=== PATIENT | male | born 1970 | race Two or more races ===

== ENCOUNTER 2025-05-09 15:46 | Emergency (ER) | payer MEDICAID, SELFPAY ==
[2025-05-09 15:46] VITALS: BMI 26.1
--- NOTE | 2025-05-09 15:55 | XR_ITS ---
Examination: Left elbow 3 views Technique: Elbow AP, oblique, lateral 3 views Exam date and time: May 09, 2025, 1558 hours INDICATIONS: Redness swelling involving the elbow this week FINDINGS: No fracture or dislocation. No elbow effusion. No cortical bone destruction. Large posterior bony olecranon spur Soft tissue swelling dorsum of the elbow IMPRESSION: Soft tissue swelling dorsum of the elbow, consider ultrasound soft tissue follow-up
[2025-05-09 15:58] VITALS: BP 146/93; PULSE 96; RESP 18; TEMP 36.8; O2SAT 99
--- NOTE | 2025-05-09 17:19 | EDNOTE_ITS ---
<Statement entered by Elizabeth Dobson MD - 05/10/25 11:58> As co-signing physician, I was present and available for consult prn. I concur with the plan and care as documented by the midlevel provider. 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 Denies any numbness, tingling, weakness and it only hurts when he applies pressure to it. Related Data Home Medications ?Medication ?Instructions ?Recorded ?Confirmed lisinopril 20 mg tablet 20 mg PO QDAY 05/04/1805/04 Previous Rx's ?Medication ?Instructions ?Recorded albuterol sulfate 90 mcg/actuation 2 puff inhalation Q 4H #8.5 grams 05/04/18 aerosol inhaler sulfamethoxazole 800 1 tab PO BID 10 days #20 tab s 05/09/25 mg-trimethoprim 160 mg tablet (Bactrim DS) Allergies Allergy/AdvReac Type Severity Reaction Status Date / Time No Known Allergies Allergy Verified 05/09/25 15:49 ED Exam Narrative Physical exam: Constitutional: Vital Signs Reviewed. Well appearing. No acute distress. Not toxic appearing. Head: Normocephalic, atraumatic. Eyes: Conjunctiva clear. ENT: Mucous membranes moist. Neck: Trachea midline. Normal range of motion. No nuchal rigidity. Respiratory: Normal effort. No respiratory distress or accessory muscle use. Neuro: Alert and oriented. Speech normal. No focal gross motor or sensory deficits observed. Skin: Warm, dry, normal color. Psych: Pleasant. Normal affect. Cooperative. Left upper extremity: Positive tenderness to palpation, erythema, warmth noted to the olecranon bursa and there is a abrasion noted overlying that aspect as well which appears to be well-healing.There is no fluctuance or drainage. Full range of motion, strength 5 out of 5, sensation tact light touch for left elbow. No effusion of left elbow. No pain with loading left elbow joint. Radial pulse 2+ regular rate and rhythm. Course Quality Measures none Orders Category Date Time Status XR elbow comp LT min 3V Stat Exams 05/09/25 15:55 Completed cefTRIAXone [Rocephin] 1,000 mg Med 05/09/25 16:33 Discontinued Lidocaine 1% Pf Vial 5ml [Xylocaine 1% Pf 5 ml] 2.1 ml IM X1 Vital Signs Vital signs: Vital Signs Temperature 98.3 F 05/09/25 15:58 Pulse Rate 96 05/09/25 15:58 Respiratory Rate 18 05/09/25 15:58 Blood Pressure 146/93 H 05/09/25 15:58 Pulse Oximetry (%) 99 05/09/25 15:58 Oxygen Delivery Method Room Air 05/09/25 15:58 Extremity Injury MDM Narrative MDM Narrative:: MDM This patient?s soft tissue infection appears appropriate for outpatient management with close follow-up by a clinician within 24?48 hours. There are no signs of systemic toxicity, and a serious, rapidly progressive infection is unlikely based on presentation and exam. Concern for cellulitis versus septic bursitis versus traumatic bursitis. No irritable joint, circumferential erythema, effusion or pain with loading joint and doubt septic arthritis. Doubt necrotizing fasciitis given lack of tenderness beyond erythema or crepitus, and doubt lymphangitis given lack of streaking. No focal fluid collection is appreciated to suggest need for incision and drainage. Antibiotics have been initiated, and response will be assessed at follow-up. The patient has been inst ructed on signs of acute progression and to return immediately if symptoms worsen or change. At the time of reassessment prior to discharge, the patient remains alert and oriented ?3 with GCS 15. Vitals are normal, pain is controlled, and the patient is tolerating oral intake without nausea or vomiting. The patient is agreeable to discharge and verbalizes understanding of the diagnosis, studies, treatment plan, medications (including side effects/precautions), and strict ER return precautions as discussed in the ED. All concerns were addressed, and the patient is comfortable with the plan. Patient data External records reviewed:: None Clinical information provided by:: patient Social determinants that could affect healthcare access:: none Patient has the following chronic illnesses:: As noted How is presenting disease/condition affected by chronic disease/condition?: exacerbated by Evaluation data The following diagnostics were reviewed and interpreted by me:: lab results and radiology exam(s) Lab and/or radiology exams considered but not ordered:: Additional Labs and radiology considered, but not ordered as they were not clinically indicated at this time. Interpretation Summary: POC glucose minimally elevated at 123 X-ray without gross fracture or bony mal-alignment or effusion however there is soft tissue swelling overlying the olecranon bursa and a an osteophyte which is noted over the olecranon process which appears chronic and well-corticated in na ture Medications / Prescriptions Medications or Prescriptions considered but not ordered:: I ordered medications based on the patient?s clinical needs and assessment, as documented in the chart. For medications not prescribed, they were not indicated for the patient's current condition, and I determined they were unnecessary at this time to avoid potential risks or complications. Medication administrations:: Medication Administration History Discontinued Medications Ceftriaxone Sodium 1,000 mg/ (Lidocaine HCl 2.1 ml) 0 mg IM X1 ONE Stop: 05/09/25 16:34 Last Admin: 05/09/25 17:34 Dose: 1,000 mg Documented By: GM As noted Consultations Consultation(s) initiated? (list below): No Diagnosis Upper Extremity Injury Differential Diagnosis: other Most likely diagnosis given after review of the tests above:: As noted Admission Indicated Admission indicated?: not indicated Admission Request Was there a request for admission?: No Disposition Plan Disposition Plan: Discharge Discharge Attestation Discharge Attestation: The patient and all family members were given an opportunity to ask questions and understood the discharge instructions. Discharge instructions specifically effects, indications for sooner follow up or return to the emergency department, and the expected course of current diagnosis. Patient condition: Stable Discharge Plan Plan Patient Disposition: HOME (Self Care) Patient condition on transfer: Stable Prescriptions/Referrals Prescriptions/Med Rec: New sulfamethoxazole-trimethoprim [Bactrim DS] 800-160 mg tablet 1 tab PO BID 10 Days Qty: 20 0RF No Action lisinopril 20 mg Tablet 20 mg PO QDAY albuterol sulfate 90 mcg/actuation HFA aerosol inhaler 2 puff INH Q4H Qty: 8.5 0RF Referrals: Carlos Thornton MD [Primary Care Provider, Family Practice] - In 1 week Problem List Clinical Impression: Septic bursitis of elbow Patient/Caregiver Discharge Instructions Education Materials: ED Bursitis, ED Cellulitis Additional Instructions: Follow up with your primary medical doctor within 48 hours. Return to the Emergency Room immediately for any new, worsening, continuing symptoms or any concerns at all. Return to the Emergency Room within 48 hours if you are unable to follow up with your primary medical doctor within 48 hours. Print Language: Kyrgyz Stand Alone Forms: Breanna Award Info., Patient Portal Info Letter PA/FLAT FOLDING MACHINE OPERATOR Supervising Physician PA/FLAT FOLDING MACHINE OPERATOR Supervising Physician: Dr. DOBSON
== END 2025-05-09 17:39 | disposition home or self-care (01) ==
PROVIDERS: Emergency Provider Emergency Medicine; PCP Family Medicine
DX: M71.122 Other infective bursitis, left elbow (principal)
CPT/HCPCS: 73080; 82947; 96372; 99283; J0696; J3490

== ENCOUNTER 2025-05-11 20:01 | Inpatient (IN) | payer MEDICAID, SELFPAY ==
[2025-05-11 20:03] VITALS: BMI 27.7
[2025-05-11 20:10] VITALS: BP 124/85; PULSE 91; RESP 18; TEMP 36.6; O2SAT 97
--- NOTE | 2025-05-11 20:24 | XR_ITS ---
EXAMINATION: Left elbow 2 views TECHNIQUE: AP lateral left elbow 2 views Date and time: May 11, 2025, 2040 hours INDICATIONS: Redness swelling and pain involving the elbow this week. FINDINGS: No fracture or dislocation. 15 mm posterior bony olecranon spur Soft tissue swelling dorsum to the elbow No elbow effusion IMPRESSION: No fracture or cortical bone destruction Recommend ultrasound soft tissue follow-up with specific attention to the soft tissue dorsal to the elbow
--- NOTE | 2025-05-11 20:33 | PD.EDRECHK ---
ED Recheck Abnl Lab Rx-RME/HPI General Chief Complaint: Recheck/Abnormal Lab/Rx Stated Complaint: RE CHECK LEFT ELBOW SWELLING Time Seen by Provider: 05/11/25 20:05 Arrival date/time: 05/11/25 20:01 RME / HPI RME / HPI narrative: 55-year-old male with past medical history of hypertension, diabetes on metformin who presents to the ER for recheck of left elbow septic bursitis which she was diagnosed with 3 days ago given a shot of ceftriaxone here in the ER and discharged with Bactrim which she has been taking for just over 48 hours however his pain and redness have worsened. Denies any fever, nausea, vomiting. Related Data Home Medications ?Medication ?Instructions ?Recorded ?Confirmed lisinopril 20 mg tablet 20 mg PO QDAY 05/04/18 05/04/18 Previous Rx's ?Medication ?Instructions ?Recorded albuterol sulfate 90 mcg/actuation 2 puff inhalation Q4H #8.5 grams 05/04/18 aerosol inhaler sulfamethoxazole 800 1 tab PO BID 10 days #20 tabs 05/09/25 mg-trimethoprim 160 mg tablet (Bactrim DS) Allergies Allergy/AdvReac Type Severity Reaction Status Date / Time No Known Allergies Allergy Verified 05/11/25 20:02 ED Exam Narrative Physical exam: Constitutional: Patient alert and oriented. Well appearing. No acute distress. Not toxic appearing. Head: Normocephalic, atraumatic. Eyes: Periorbital regions bilaterally normal to inspection. Conjunctiva clear bilaterally. Sclera anicteric bilaterally. Pupils equal, round, reactive to light bilaterally. Extraocular movements intact bilaterally. Mouth/Throat: Mucous membranes moist. No stridor or muffled voice. No trismus. Handling secretions without difficulty. Airway widely patent. Neck: Supple. Trachea midline. No JVD. No nuchal rigidity. Normal range of motion. Respiratory: Normal effort. No accessory muscle use or respiratory distress. Lungs clear to auscultation bilaterally without rhonchi, wheezes, or crackles. Cardiovascular: RRR. Normal S1/S2. No murmurs or rubs. Radial pulses intact bilaterally. Abdomen: Soft. Non-distended. Non-tender throughout. No pulsatile mass. No guarding or rebound. Negative Rolon?s sign. Negative McBurney?s point tenderness. Negative Rovsing?s. Back: No midline tenderness or step-offs. No CVA tenderness to palpation bilaterally. Upper Extremities: No gross deformities. Positive tenderness palpation, erythema, warmth, induration to left olecranon bursa along with a well-healing abrasion which extends towards the middle aspect of his forearm. No fluctuance. Full range of motion, strength 5 out of 5 for left elbow. Left radial pulse 2+ regular rate and rhythm. Compartments remain soft for left upper extremities. Lower Extremities: No gross deformities. No edema or calf tenderness. Neuro: Speech normal. No gross motor or sensory deficits to upper or lower extremities bilaterally. GCS 15. CN II?XII grossly intact. Skin: Warm, dry, normal color. Psych: Normal affect. Cooperative. Normal insight. Course Quality Measures none Orders Category Date Time Status COVID-19 Screening Questionnaire NOW Care 05/11/25 20:39 Active Decision to Admit X1 Care 05/11/25 20:39 Completed US extremity nonvascular LMTD Stat Exams 05/11/25 22:15 Completed XR elbow LT 2V Stat Exams 05/11/25 20:24 Completed Blood Culture (Lab) Stat Lab 05/11/25 21:04 Received C-Reactive Protein Stat Lab 05/11/25 20:55 Completed CBC Stat Lab 05/11/25 20:55 Completed CMP [Comprehensive Metabolic Panel] Stat Lab 05/11/25 20:55 Completed Lactic Acid [Lactate (Lactic Acid)] Stat Lab 05/11/25 20:55 Completed Procalcitonin Stat Lab 05/11/25 20:55 Completed Sed Rate (ESR) Stat Lab 05/11/25 20:55 Completed HYDROcodone*/APAP 5/325 [[place] 5/325] Med 05/11/25 20:38 Discontinued 1 tab PO X1 ONE Piper/Tazo Inj [Zosyn Inj] 4.5 gm Med 05/11/25 20:28 Discontinued Sodium Chloride 0.9% (Pop) [NS 0.9% mini bag] 100 ml IV X1 Sodium Chloride 0.9% 1000 ml [Ns] 1,000 ml Med 05/11/25 22:28 Discontinued IV 999 mls/hr Vancomycin/Ns 1 gm Ivpb 200 ml Med 05/11/25 20:30 Discontinued IV X1 Vital Signs Vital signs: Vital Signs Temperature 97.9 F 05/11/25 20:10 Pulse Rate 91 05/11/25 20:10 Respiratory Rate 18 05/11/25 20:10 Blood Pressure 124/85 H 05/11/25 20:10 Pulse Oximetry (%) 97 05/11/25 20:10 Oxygen Delivery Method Room Air 05/11/25 20:10 Recheck / Abnormal Lab / Rx MDM Narrative MDM Narrative:: 55-year-old male with past medical history of hypertension and [id number] diabetes presents to the ER for recheck of his left elbow pain when he was initially diagnosed with septic Bursitis 3 days ago here in the ER given 1 g of ceftriaxone IM and discharged with Bactrim presents for recheck after being compliant with this medication for 48 hours complaining of worsening pain and redness. Concern for failed outpatient therapy for left elbow cellulitis complicated by septic bursitis. Patient will require IV antibiotics and admission. Patient data External records reviewed:: [facility] previous records Clinical information provided by:: patient Social determinants that could affect healthcare access:: none Patient has the following chronic illnesses:: Diabetes, hypertension How is presenting disease/condition affected by chronic disease/condition?: exacerbated by Evaluation data The following diagnostics were reviewed and interpreted by me:: other (specify) Lab and/or radiology exams considered but not ordered:: Additional Labs and radiology considered, but not ordered as they were not clinically indicated at this time. Interpretation Summary: White blood cell count minimally elevated at 12.5, hematocrit minimally low at 38.2, thrombocytopenia with 66,000 platelets Sed rate elevated at 54, CRP elevated 8.5, procalcitonin within normal limits at 0.011, and lactic acid within normal limits at 1.5, corrected calcium minimally elevated 10.4 otherwise no severe metabolic or electrolyte abnormality XR without effusion or cortical bone destruction, soft tissue edema noted along with osteophyte Medications / Prescriptions Medications or Prescriptions considered but not ordered:: I ordered medications based on the patient?s clinical needs and assessment, as documented in the chart. For medications not prescribed, they were not indicated for the patient's current condition, and I determined they were unnecessary at this time to avoid potential risks or complications. Medication administrations:: Medication Administration History Acetaminophen (Acetaminophen 325 Mg Tablet) 650 mg PO Q6H PRN PRN Reason: Fever >101.5 or pain Stop: 06/10/25 23:56 Dextrose (Dextrose 50%-Water Inj 50 Ml Syringe) 25 ml IV Q15MIN PRN PRN Reason: BG 50-70 responsive npo pt Stop: 06/11/25 00:06 Dextrose (Dextrose 50%-Water Inj 50 Ml Syringe) 50 ml IV Q15MIN PRN PRN Reason: BG <50 OR BG <70 & pt unresponsive Stop: 06/11/25 00:06 Enoxaparin Sodium (Enoxaparin Sod Inj 40 Mg/0.4 Ml Syringe) 40 mg SC QDAY [facility] Stop: 05/26/25 08:59 Glucagon (Glucagon Inj 1 Mg Vial) 1 mg IM Q15MIN PRN PRN Reason: BG <70, and no IV access Ceftriaxone Sodium/Dextrose (Rocephin/D5w 1gm Iv Premix) 1 gm in 50 mls @ 100 mls/hr IV QDAY [facility] Stop: 05/19/25 08:59 Insulin Human Lispro (Insulin Lispro (Admelog) 1 Unit/0.01 Ml Unit) 0 unit SC [facility]; Protocol Stop: 06/11/25 07:29 Ketorolac Tromethamine (Ketorolac Inj 30 Mg/Ml Vial) 30 mg IVP Q6HR PRN PRN Reason: BREAKTHROUGH PAIN Stop: 05/17/25 00:01 Lisinopril (Lisinopril 2.5 Mg Tablet) 10 mg PO QDAY [facility] Stop: 06/11/25 08:59 Pharmacy Consult (Vancomycin Pharmacy To Dose 1 Each Each) 1 each IV QDAY [facility] Stop: 06/11/25 08:59 Discontinued Medications Hydrocodone Bitart/Acetaminophen (Hydrocodone/Apap 5/325 Tablet) 1 tab PO X1 ONE Stop: 05/11/25 20:39 Last Admin: 05/11/25 21:28 Dose: 1 tab Documented By: ROULA Piperacillin Sod/Tazobactam (Sod 4.5 gm/ Sodium Chloride) 100 mls @ 200 mls/hr IV X1 ONE; Protocol Stop: 05/11/25 20:57 Last Infusion: 05/11/25 22:53 Dose: Infused Documented By: Admin: 05/11/25 21:27 Dose: 200 mls/hr Documented By: ROULA Vancomycin/Sodium Chloride (Vancomycin/Ns 1 Gm Ivpb) 200 mls @ 120 mls/hr IV X1 ONE Stop: 05/11/25 22:09 Last Infusion: 05/11/25 23:09 Dose: Infused Documented By: Admin: 05/11/25 21:28 Dose: 120 mls/hr Documented By: ROULA Sodium Chloride (Ns) 1,000 mls @ 999 mls/hr IV .Q1H1M ONE Stop: 05/11/25 23:28 Last Infusion: 05/12/25 00:02 Dose: Infused Documented By: [email or web address] Admin: 05/11/25 23:02 Dose: 999 mls/hr Documented By: [email or web address] As noted Consultations Consultation(s) initiated? (list below): Yes Consultation #1 (Physician, Specialty, Details): Dr. Jefferson. internal medicine, will evaluate pt for admission Time: 22:47 Diagnosis Recheck Differential Diagnosis: other Most likely diagnosis given after review of the tests above:: As noted Admission Indicated Admission indicated?: indicated Admission Request Was there a request for admission?: Yes Admission Attestation Admission request attestation: Discussed case with [] from Hospitalist service regarding admission. Discussed patients ED course, exam findings, labs, and radiology results. The Hospitalist [agrees,declines] to accept the patient for admission. Disposition Plan Disposition Plan: Admit Discharge Plan Plan Patient condition on transfer: Stable Problem List Clinical Impression: Septic bursitis of elbow, Cellulitis
--- NOTE | 2025-05-11 21:09 | PD.EDRME ---
Rapid Medical Screening Exam RME Arrival date/time: 05/11/25 20:01 55-year-old male with past medical history of hypertension, diabetes on metformin who presents to the ER for recheck of left elbow septic bursitis which she was diagnosed with 3 days ago given a shot of ceftriaxone here in the ER and discharged with Bactrim which she has been taking for just over 48 hours however his pain and redness have worsened. Denies any fever, nausea, vomiting. Chief Complaint: Recheck/Abnormal Lab/Rx Time Seen by Provider: 05/11/25 20:05 Vital signs: Vital Signs Temperature 97.9 F 05/11/25 20:10 Pulse Rate 91 05/11/25 20:10 Respiratory Rate 18 05/11/25 20:10 Blood Pressure 124/85 H 05/11/25 20:10 Pulse Oximetry (%) 97 05/11/25 20:10 Oxygen Delivery Method Room Air 05/11/25 20:10 RME Narrative: 55-year-old male with past medical history of hypertension, diabetes on metformin who presents to the ER for recheck of left elbow septic bursitis which she was diagnosed with 3 days ago given a shot of ceftriaxone here in the ER and discharged with Bactrim which she has been taking for just over 48 hours however his pain and redness have worsened. Denies any fever, nausea, vomiting. Exam: RME note Clinical Impression: RME note
[2025-05-11 21:15] VITALS: BP 124/81; PULSE 70; RESP 20; TEMP 36.8; O2SAT 96
[2025-05-11 21:22] LABS: Lactate (Lactic Acid) 1.5 mMol/L (0.4-2.0)
[2025-05-11 21:24] LABS: Basophils # (Auto) 0.1 Thou/mm3 (0.0-0.2); Basophils % (Auto) 0 % (0-2.5); Eosinophils # (Auto) 0.3 Thou/mm3 (0.0-0.5); Eosinophils % (Auto) 3 % (0-10); Hematocrit 38.2 % (41.0-53.0); Hemoglobin 13.5 g/dL (13.5-16.0); Immature Granulocytes Auto 0.05 Thou/mm3 (0.00-0.00); Lymphocytes # (Auto) 2.9 Thou/mm3 (1.0-4.8); Lymphocytes % (Auto) 23 % (10-50); Mean Corpuscular HGB Conc 35.3 g/dl (31.0-37.0); Mean Corpuscular Hemoglobin 34.4 pg (25.0-35.0); Mean Corpuscular Volume 97 fL (80-100); Monocytes # (Auto) 0.9 Thou/mm3 (0.0-0.8); Monocytes % (Auto) 7 % (0-12); Neutrophils # (Auto) 8.3 Thou/mm3 (1.8-7.7); Neutrophils % (Auto) 67 % (37-80); Nucleated Red Blood Cell # 0.00 Thou/mm3 (0.00-0.00); Nucleated Red Blood Cell % 0 /100 WBC (0); RDW Standard Deviation 41.7 fL (35.1-43.9); Red Blood Count 3.92 Miln/mm3 (4.50-5.90); White Blood Count 12.5 Thou/mm3 (3.8-10.6)
[2025-05-11 21:26] LABS: Platelet Count 66 Thou/mm3 (140-440)
[2025-05-11] MEDS: PIPER/TAZO INJ 4.5 GM in SODIUM CHLORIDE 0.9% (POP) 100 ML IV (21:27)
[2025-05-11] MEDS: VANCOMYCIN/NS 1 GM IVPB 200 ML IV (21:28)
[2025-05-11] MEDS: HYDROcodone/APAP 5/325 TABLET 1 TAB PO (21:28)
[2025-05-11 21:35] LABS: Sed Rate (ESR) 54 mm/hr (0-20)
[2025-05-11 21:51] LABS: Slide Review Platelets confirmed
[2025-05-11 22:05] LABS: Alanine Aminotransferase 37 U/L (10-49); Albumin, Serum 4.9 gm/dL (3.5-5.0); Albumin/Globulin Ratio 1.4 (1.2-2.2); Alkaline Phosphatase 58 U/L (46-116); Anion Gap 11 (7-16); Aspartate Amino Transferase 19 U/L (0-34); BUN/Creatinine Ratio 14 Ratio (12-20); Bilirubin,Total 0.7 mg/dL (0.3-1.2); Blood Urea Nitrogen 18 mg/dL (9-23); C-Reactive Protein 8.5 mg/dL (0.0-0.9); Calcium 10.4 mg/dL (8.3-10.6); Calcium (Corrected) 10.4 mg/dL (8.5-10.1); Carbon Dioxide 23.5 mMol/L (20.0-31.0); Chloride 104 mMol/L (98-107); Creatinine (Component) 1.3 mg/dL (0.6-1.3); Estimated Creatinine Clearance 62.4 mL/min (>60); Globulin 3.4 gm/dL (2.3-3.5); Glucose 99 mg/dL (74-106); Osmolality,Calculated 277 (275-295); Potassium 3.9 mMol/L (3.4-5.1); Procalcitonin 0.11 ng/ml (0.0-0.49); Sodium 138 mMol/L (136-145); Total Protein 8.3 gm/dL (5.7-8.2); eGFR > 60 See Note
--- NOTE | 2025-05-11 22:15 | XR_ITS ---
EXAMINATION: Ultrasound soft tissue extremity left elbow TECHNIQUE: Grayscale sonographic images soft tissue left elbow Date and time: May 11, 2025, 12:26 p.m. INDICATIONS: Redness swelling and pain involving the elbow beginning 4 days ago. FINDINGS: Edematous tissue at the area of concern in the elbow 2.5 x 0.8 x 1.5 cm consistent with edema/early abscess, clinical correlation advised No foreign body IMPRESSION: Phlegmonous infectious mass/early abscess in the dorsum of the elbow, clinical correlation advised
[2025-05-11] MEDS: SODIUM CHLORIDE 0.9% 1000 ML 1,000 ML 999 ML IV (23:02)
[2025-05-11 23:14] VITALS: BP 125/79; PULSE 78; RESP 13; TEMP 36.5; O2SAT 96
[2025-05-12] VITALS (10 sets, daily range): BP systolic 113–142; BP diastolic 73–92; PULSE 72–94; RESP 16–97; TEMP 36–37.2; O2SAT 95–99; BMI 27.7
--- NOTE | 2025-05-12 00:11 | ESHP_ITS ---
<Statement entered by Nils Jordan MD - 05/12/25 06:28> I have personally seen and examined the patient, agree with residents assessment and plan Patient plan of care was discussed with the attending physician, Dr. Li Jordan, PGY2 Documentation for date of: 05/12/25 HPI History of Present Illness Chief complaint: Left elbow pain History of present illness: This patient is a 55-year-old male with a history of hypertension and ieb-tuikfwp-etlzxawtn type 2 diabetes mellitus who presented to [facility] ED on 05/11 for continuing left elbow pain. Patient was admitted for management of left elbow cellulitis after failing outpatient antibiotics. The patient stated that he had a scratch on his left elbow after hitting a wall with that about 2 weeks ago. At the time, there was not any complications and a scab formed over it, however the patient recently scratched his scab off. Patient started noticing some pain and erythema in his left elbow area on Sunday when he went to take a shower. The patient initially did not think much of it, however pain and erythema got worse and the patient noticed some swelling in his left elbow, which prompted him to go to the ED on 05/09. At the ED, patient was given a ceftriaxone shot and prescribed Bactrim to complete his course of antibiotics. However, patient had continuing swelling, pain, and erythema, so the patient went back to the ED following the ED discharge instructions. The patient was given vancomycin and Zosyn as well as a Graff tablet, which resulted in significant improvement in the patient's erythema, swelling, and pain as per the patient and his partner at bedside. Patient denies any fevers, chills, headache, vision changes, shortness of breath, chest pain, abdominal pain, and dysuria. ED course: Initial vitals significant for blood pressure of 124/85. Initial labs significant for WBC 12.5, platelet count 66, ESR 54, and CRP 8.5. X-ray of elbow shows soft tissue swelling dorsum to the elbow. Follow-up elbow ultrasound shows phlegmonous infectious mass/early abscess in the dorsum of the elbow. Patient was given vancomycin, Zosyn, and Graff tablet, and reported significant improvement in left elbow erythema, pain, and swelling. 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 Alcohol Intake: Patient is not exactly sure how much alcohol he drinks, maybe about 4-5 bottles of beer every other day and additional 12 pack of beer once every week, patient has been drinking since 24 years old of age Tobacco/Vape Use: Patient denies Other Drug Use: Patient denies Animal exposure: Patient has a pet freddie at home, states that this pet has not licked his left elbow to his knowledge Review of Systems Review of Systems Systems Reviewed: All systems reviewed, normal except as documented Exam Vital Signs Temp Pulse Resp BP Pulse Ox O2 Del Method 97.7 F 78 13 125/79 96 Room Air 05/11/25 23:14 05/11/25 23:14 05/11/25 23:14 05/11/25 23:14 05/11/25 23:14 05/11/25 23:14 Narrative Exam Physical Exam: General: Alert, no acute distress. Skin: Warm, dry, intact. Head: Normocephalic, atraumatic. Eye: Normal conjunctiva, PERRL. Throat: Oral mucosa moist. No obvious lesions in oropharynx. Cardiovascular: Regular rate and rhythm, no murmur, +S1/S2. Respiratory: Lungs are clear to auscultation, respirations unlabored, no crackles, no wheezing. Gastrointestinal: Soft, nontender, non-distended. No guarding or rebound tenderness. Extremities: Left elbow 1+ edema and diffuse erythema with estimated 5cm linear scab, no cyanosis, no clubbing. 2+ radial pulse bilaterally, 2+ pedal pulse bilaterally. Neuro: No focal deficits observed. Conversant, moving all extremities. No overt cerebellar signs/incoordination. Psychiatric: Cooperative, appropriate affect. Results: Labs 05/12/25 05:05 05/11/25 20:55 Labs: Short CBC 05/11/25 Range/Units 20:55 WBC 12.5 H (3.8-10.6) Thou/mm3 Hgb 13.5 (13.5-16.0) g/dL Hct 38.2 L (41.0-53.0) % Plt Count 66 L (140-440) Thou/mm3 BMP 05/11/25 20:55 Sodium 138 Potassium 3.9 Chloride 104 Carbon Dioxide 23.5 BUN 18 Creatinine 1.3 Glucose 99 Calcium 10.4 Liver Function 05/11/25 Range/Units 20:55 Total Bilirubin 0.7 (0.3-1.2) mg/dL AST 19 (0-34) U/L ALT 37 (10-49) U/L Alkaline Phosphatase 58 (46-116) U/L Albumin 4.9 (3.5-5.0) gm/dL Quality Measures Quality Measures VTE prophylaxis Medications Home Medications and Allergies Home Medications ?Medication ?Instructions ?Recorded ?Confirmed ?Type lisinopril 20 mg tablet 10 mg PO QDAY 05/04/1805/12 History cyclobenzaprine 10 mg tablet 10 mg PO QAM 05/12/25 History loratadine 10 mg tablet (Allergy 10 mg PO QDAY 5 05/12/25 History Relief (loratadine)) metformin 1,000 mg 24 hr 1,000 mg PO BID 05/12/25 History tablet,extended release (gastric reten.) (Glumetza) semaglutide 0.25 mg or 0.5 mg (2 0.5 mg subcut QWEEK 1 07/13/24 05/12/25 History mg/3 mL) subcutaneous pen injector (Ozempic) Allergies Allergy/AdvReac Type Severity Reaction Status Date / Time No Known Allergies Allergy Verified 05/11/25 20:02 Visit Medications Acetaminophen (Acetaminophen 325 Mg Tablet) 650 mg PO Q6H PRN PRN Reason: Fever >101.5 or pain Stop: 06/10/25 23:56 Dextrose (Dextrose 50%-Water Inj 50 Ml Syringe) 25 ml IV Q15MIN PRN PRN Reason: BG 50-70 responsive npo pt Stop: 06/11/25 00:06 Dextrose (Dextrose 50%-Water Inj 50 Ml Syringe) 50 ml IV Q15MIN PRN PRN Reason: BG <50 OR BG <70 & pt unresponsive Stop: 06/11/25 00:06 Enoxaparin Sodium (Enoxaparin Sod Inj 40 Mg/0.4 Ml Syringe) 40 mg SC QDAY MATILDE Stop: 05/26/25 08:59 Glucagon (Glucagon Inj 1 Mg Vial) 1 mg IM Q15MIN PRN PRN Reason: BG <70, and no IV access Ceftriaxone Sodium/Dextrose (Rocephin/D5w 1gm Iv Premix) 1 gm in 50 mls @ 100 mls/hr IV QDAY [facility] Stop: 05/19/25 08:59 Insulin Human Lispro (Insulin Lispro (Admelog) 1 Unit/0.01 Ml Unit) 0 unit SC ACHS [facility]; Protocol Stop: 06/11/25 07:29 Ketorolac Tromethamine (Ketorolac Inj 30 Mg/Ml Vial) 30 mg IVP Q6HR PRN PRN Reason: BREAKTHROUGH PAIN Stop: 05/17/25 00:01 Lisinopril (Lisinopril 2.5 Mg Tablet) 10 mg PO QDAY [facility] Stop: 06/11/25 08:59 Pharmacy Consult (Vancomycin Pharmacy To Dose 1 Each Each) 1 each IV QDAY [facility] Stop: 06/11/25 08:59 Discontinued Medications Hydrocodone Bitart/Acetaminophen (Hydrocodone/Apap 5/325 Tablet) 1 tab PO X1 ONE Stop: 05/11/25 20:39 Last Admin: 05/11/25 21:28 Dose: 1 tab Piperacillin Sod/Tazobactam (Sod 4.5 gm/ Sodium Chloride) 100 mls @ 200 mls/hr IV X1 ONE; Protocol Stop: 05/11/25 20:57 Last Infusion: 05/11/25 22:53 Dose: Infused Vancomycin/Sodium Chloride (Vancomycin/Ns 1 Gm Ivpb) 200 mls @ 120 mls/hr IV X1 ONE Stop: 05/11/25 22:09 Last Admin: 05/11/25 21:28 Dose: 120 mls/hr Sodium Chloride (Ns) 1,000 mls @ 999 mls/hr IV .Q1H1M ONE Stop: 05/11/25 23:28 Last Infusion: 05/12/25 00:02 Dose: Infused Assessment & Plan Plan This patient is a 55-year-old male with a history of hypertension and gll-yhxdlhl-yykvsntzj type 2 diabetes mellitus who presented to [facility] ED on 05/11 for continuing left elbow pain. Patient was admitted for management of left elbow cellulitis after failing outpatient antibiotics. #Cellulitis, left elbow, failed outpatient therapy #Early abscess, dorsum of left elbow Patient initially noticed erythema, pain, and swelling of his left elbow on 05/08, source of infection likely secondary to a scratch on his left elbow after scratching off a scab bit before that. The patient initially tried outpatient treatment with subcutaneous ceftriaxone and oral Bactrim, however patient returned to ED due to worsening of his erythema, pain, and swelling of his left elbow. Diagnostic: Elbow x-ray on 05/09 shows soft tissue swelling dorsum of the elbow Elbow x-ray on 05/11 shows soft tissue swelling dorsum to the elbow Elbow ultrasound on 05/11 shows edematous tissue in elbow measuring 2.5 x 0.8 x 1.5 cm consistent with edema/early abscess ESR 54 and CRP 8.5 Blood cultures collected on 05/11, pending Treatment: Patient noted significant improvement with one-time dose of vancomycin and Zosyn IV in ED Ceftriaxone 1 g daily (05/11?) Vancomycin, pharmacy to dose daily (05/11?) Acetaminophen and ketorolac for pain control #Oex-zgabgch-casyxpabt type 2 diabetes mellitus According to the patient, he has a history of type 2 diabetes mellitus for which he takes metformin and semaglutide for. Diagnostic: Hemoglobin A1c ordered, pending Treatment: Sliding scale insulin Bedside glucose checks ACHS Carbohydrate consistent diet #Thrombocytopenia Initial labs in ED noted platelet count of 66. Patient does not have any history of easy bruising or easy bleeding. Possibly secondary to chronic alcohol use. Treatment: Patient to follow-up outpatient Consider peripheral blood smear to evaluate RBC morphology to assess for any microangiopathic hemolytic anemias, although this is less likely given otherwise stable labs and patient presentation #History of hypertension, primary Patient has a history of hypertension for which he takes lisinopril at home for management. Treatment: Resumed home lisinopril 10 mg daily #Chronic alcohol use Extensive alcohol history per the patient, claims to have been drinking since he was 24 years old and will drink 4-5 bottles of beer every other day with an additional 12 pack once every week. Treatment: Counseled on alcohol cessation Will recommend the patient follow-up outpatient for possible alcohol cessation DVT Prophylaxis: Lovenox GI Prophylaxis: N/A Bowel: Sennokot PRN Diet: Carbohydrate consistent Parish: N/A Lines: PIV Antibiotics: Ceftriaxone & Vancomycin Code Status: FULL Reason for Hospitalization: Cellulitis, failed outpatient antibiotics Other Barriers to Discharge: Blood culture results Patient plan of care was discussed with the senior resident Dr. Jordan (PGY-2) and attending physician Dr. Li Moore, PGY1 Attending Provider Attestation/Addendum I have seen and examined the patient. I was physically present for the mathias portions of the services provided including history, physical exam, diagnosis, treatment plans and orders. I agree with assessment and plan of care as documented by residents. After examination of the patient and review of the clinical data I feel that this patient needs admission to the hospital for further treatment/evaluation. Even though this this note was carefully revised there may still be minor errors in special effects artist due to voice recognition software. Robert Jefferson MD
[2025-05-12 05:47] LABS: Basophils # (Auto) 0.1 Thou/mm3 (0.0-0.2); Basophils % (Auto) 0 % (0-2.5); Eosinophils # (Auto) 0.4 Thou/mm3 (0.0-0.5); Eosinophils % (Auto) 3 % (0-10); Hematocrit 35.2 % (41.0-53.0); Hemoglobin 12.5 g/dL (13.5-16.0); Immature Granulocytes Auto 0.05 Thou/mm3 (0.00-0.00); Lymphocytes # (Auto) 2.6 Thou/mm3 (1.0-4.8); Lymphocytes % (Auto) 21 % (10-50); Mean Corpuscular HGB Conc 35.5 g/dl (31.0-37.0); Mean Corpuscular Hemoglobin 35.0 pg (25.0-35.0); Mean Corpuscular Volume 99 fL (80-100); Monocytes # (Auto) 0.8 Thou/mm3 (0.0-0.8); Monocytes % (Auto) 7 % (0-12); Neutrophils # (Auto) 8.4 Thou/mm3 (1.8-7.7); Neutrophils % (Auto) 69 % (37-80); Nucleated Red Blood Cell # 0.00 Thou/mm3 (0.00-0.00); Nucleated Red Blood Cell % 0 /100 WBC (0); RDW Standard Deviation 42.5 fL (35.1-43.9); Red Blood Count 3.57 Miln/mm3 (4.50-5.90); White Blood Count 12.2 Thou/mm3 (3.8-10.6)
[2025-05-12 05:53] LABS: Glucose Estimated Average 114 mg/dL (80-131); Hemoglobin A1C 5.6 % Hgb (4.8-6.0)
[2025-05-12 06:30] LABS: Platelet Count 79 Thou/mm3 (140-440)
[2025-05-12 06:33] LABS: Alanine Aminotransferase 27 U/L (10-49); Albumin, Serum 4.2 gm/dL (3.5-5.0); Albumin/Globulin Ratio 1.4 (1.2-2.2); Alkaline Phosphatase 55 U/L (46-116); Anion Gap 11 (7-16); Aspartate Amino Transferase 17 U/L (0-34); BUN/Creatinine Ratio 13 Ratio (12-20); Bilirubin,Total 0.7 mg/dL (0.3-1.2); Blood Urea Nitrogen 13 mg/dL (9-23); Calcium 9.0 mg/dL (8.3-10.6); Calcium (Corrected) 9.0 mg/dL (8.5-10.1); Carbon Dioxide 22.2 mMol/L (20.0-31.0); Chloride 107 mMol/L (98-107); Creatinine (Component) 1.0 mg/dL (0.6-1.3); Estimated Creatinine Clearance 81.0 mL/min (>60); Globulin 3.1 gm/dL (2.3-3.5); Glucose 102 mg/dL (74-106); Magnesium 1.8 mg/dL (1.6-2.6); Osmolality,Calculated 279 (275-295); Phosphorous 4.0 mg/dL (2.4-5.1); Potassium 4.0 mMol/L (3.4-5.1); Sodium 140 mMol/L (136-145); Total Protein 7.3 gm/dL (5.7-8.2); eGFR > 60 See Note
[2025-05-12] MEDS: ENOXAPARIN SOD INJ 40 MG/0.4 ML SYRINGE SC (09:40)
[2025-05-12] MEDS: ceFAZolin/D5W 1 GM IVPB 1 GM/50 ML BAG IV ×3 (09:40→20:59)
[2025-05-12] MEDS: VANCOMYCIN/WATER 1GM IVPB 200 ML IV ×2 (10:32→21:54)
[2025-05-12] MEDS: KETOROLAC INJ 30 MG/ML VIAL IVP ×2 (10:32→17:37)
--- NOTE | 2025-05-12 10:42 | ESPR_ITS ---
<Statement entered by Derick Springer MD - 05/21/25 08:26> I reviewed above note and agree with findings and plans. I have also personally examined the patient with medicine team and went over assessment and plan with medical team including music industry intern and resident physician. Documentation for date of: 05/12/25 Subjective Subjective Interval history: Patient reports continued pain and swelling in his left elbow after scratching off a scab from a previous injury. He denies any fever, chills, or other systemic symptoms. The patient initially received ceftriaxone and Bactrim outpatient but returned to the ED for worsening symptoms. No acute over night events Patient denies elbow pain but site is still erythamtous and warm. No purelent discharge noted, no fever as well. Denies any other complaints. Exam Vital Signs Temp Pulse Resp BP Pulse Ox O2 Del Method 97 F 72 16 119/79 95 Room Air 05/12/25 08:00 05/12/25 09:41 05/12/25 08:00 05/12/25 09:41 05/12/25 08:00 05/12/25 08:00 Narrative Exam Physical Exam: General: Alert, no acute distress. Skin: Warm, dry, intact. Head: Normocephalic, atraumatic. Eye: Normal conjunctiva, PERRL. Throat: Oral mucosa moist. No obvious lesions in oropharynx. Cardiovascular: Regular rate and rhythm, no murmur, +S1/S2. Respiratory: Lungs are clear to auscultation, respirations unlabored, no crackles, no wheezing. Gastrointestinal: Soft, nontender, non-distended. No guarding or rebound tenderness. Extremities: Left elbow 1+ edema and diffuse erythema with estimated 5cm linear scab, no cyanosis, no clubbing. 2+ radial pulse bilaterally, 2+ pedal pulse bilaterally. Neuro: No focal deficits observed. Conversant, moving all extremities. No overt cerebellar signs/incoordination. Psychiatric: Cooperative, appropriate affect. Objective Labs 05/12/25 05:05 05/12/25 05:05 Labs: Laboratory Results - last 24 hr 05/11/25 05/12/25 20:55 05:05 WBC 12.5 H 12.2 H RBC 3.92 L 3.57 L Hgb 13.5 12.5 L Hct 38.2 L 35.2 L MCV 97 99 MCH 34.4 35.0 MCHC 35.3 35.5 RDW Std Deviation 41.7 42.5 Plt Count 66 L 79 L Neut % (Auto) 67 69 Lymph % (Auto) 23 21 [place] % (Auto) 7 7 Eos % (Auto) 3 3 Baso % (Auto) 0 0 Neut # (Auto) 8.3 H 8.4 H Lymph # (Auto) 2.9 2.6 [place] # (Auto) 0.9 H 0.8 Eos # (Auto) 0.3 0.4 Baso # (Auto) 0.1 0.1 Immature Gran # (Auto) 0.05 H 0.05 H Absolute Nucleated RBC 0.00 0.00 Immature Gran % 0 0 Nucleated RBC % 0 0 ESR 54 H Sodium 138 140 Potassium 3.9 4.0 Chloride 104 107 Carbon Dioxide 23.5 22.2 Anion Gap 11 11 BUN 18 13 Creatinine 1.3 1.0 Estim Creat Clear Calc 62.4 81.0 eGFR > 60 > 60 BUN/Creatinine Ratio 14 13 Glucose [address] Glu mg/dL 114 Hemoglobin A1c 5.6 Calculated Osmolality 277 279 Lactic Acid 1.5 Calcium 10.4 9.0 Corrected Calcium 10.4 H 9.0 Phosphorus 4.0 Magnesium 1.8 Total Bilirubin 0.7 0.7 AST 19 17 ALT 37 27 Alkaline Phosphatase 58 55 C-Reactive Prot, Quant 8.5 H Total Protein 8.3 H 7.3 Albumin 4.9 4.2 D Globulin 3.4 3.1 Albumin/Globulin Ratio 1.4 1.4 Procalcitonin 0.11 Misc Test Result Platelets confirmed Quality Measures Quality Measures VTE prophylaxis Assessment & Plan Assessment Current Active Medications: Generic Name Dose Route Start Last Admin Trade Name Freq PRN Reason Stop Dose Admin Acetaminophen 650 mg 05/11/25 23:57 Acetaminophen 325 Mg Tablet PO 06/10/25 23:56 Q6H PRN Fever >101.5 or pain Dextrose 25 ml 05/12/25 00:07 Dextrose 50%-Water Inj 50 Ml Syringe IV 06/11/25 00:06 Q15MIN PRN BG 50-70 responsive npo pt Dextrose 50 ml 05/12/25 00:07 Dextrose 50%-Water Inj 50 Ml Syringe IV 06/11/25 00:06 Q15MIN PRN BG <50 OR BG <70 & pt unresponsive Enoxaparin Sodium 40 mg 12/16/25 09:00 05/12/25 09:40 Enoxaparin Sod Inj 40 Mg/0.4 Ml Syringe SC 05/26/25 08:59 40 mg QDAY MATILDE Administration Glucagon 1 mg 05/12/25 00:07 Glucagon Inj 1 Mg Vial IM Q15MIN PRN BG <70, and no IV access Vancomycin HCl 200 mls @ 120 mls/hr 05/12/25 10:00 05/12/25 10:32 Vancomycin/Water 1gm Ivpb IV 05/19/25 09:59 120 mls/hr Q12H MATILDE Administration Cefazolin Sodium/Dextrose 1 gm in 50 mls @ 100 mls/hr 05/12/25 09:01 05/12/25 09:40 Ancef Ivpb IV 05/19/25 09:00 100 mls/hr Q8HR MATILDE Administration Insulin Human Lispro 0 unit 05/12/25 07:30 05/12/25 09:42 Insulin Lispro (Admelog) 1 Unit/0.01 Ml Unit SC 06/11/25 07:29 Not Given ACHS [facility] Protocol Ketorolac Tromethamine 30 mg 05/12/25 00:02 05/12/25 10:32 Ketorolac Inj 30 Mg/Ml Vial IVP 05/17/25 00:01 30 mg Q6HR PRN Administration BREAKTHROUGH PAIN Lisinopril 10 mg 05/12/25 09:00 05/12/25 09:41 Lisinopril 2.5 Mg Tablet PO 06/11/25 08:59 10 mg QDAY MATILDE Administration Pharmacy Consult 1 each 05/12/25 09:00 Vancomycin Pharmacy To Dose 1 Each Each IV 06/11/25 08:59 QDAY PRN PROTOCOL Sennosides 1 tab 05/12/25 02:16 Senna/Docusate Sod 1 Tab Tablet PO 06/11/25 02:15 QDAY PRN CONSTIPATION Protocol Plan 55-year-old male with a history of hypertension and type 2 diabetes, admitted for left elbow cellulitis, managed for early abscess after failure of outpatient therapy. #Cellulitis, left elbow, failed outpatient therapy #Early abscess, dorsum of left elbow Left elbow cellulitis after skin break with imaging showing early phlegmon, clinically improving, no fluctuance, no pain, no purulence, and no systemic signs of infection. Failed outpatient therapy (CTX IM + Bactrim) ED imaging: ultrasound showing phlegmonous infectious mass / early abscess Exam today: mild erythema and swelling, no fluctuance, no tenderness, no drainage Afebrile, procalcitonin negative, lactate normal WBC mildly elevated Consulted Dr Rivas (general surgery) overall favors cellulitis with early phlegmon, not a mature drainable abscess at this time Surgery recs-Continue IV antibiotics. There is no indication for general surgical intervention at this time. If infection of elbow joint is a concern, consider orthopedic consult. Plan: * Changed rocephin to cefazolin 1 g IV q8h (better MSSA/Strep coverage, more bactericidal) * Continue vancomycin for now given failed outpatient therapy and early abscess on imaging * Monitor closely for worsening erythema, swelling, development of fluctuance, fever or rising WBC. * Tera area of erythema to monitor progression * Blood cultures pending * Pain control PRN (acetaminophen / NSAIDs) * No immediate incision & drainage indicated at this time per surgery # Thrombocytopenia Moderate thrombocytopenia without bleeding, likely chronic and possibly alcohol- related. Plan: * Trend platelet count daily * Consider peripheral smear if platelets worsen or do not improve # Type 2 diabetes mellitus Well-controlled T2DM on metformin. A1c 5.6 Plan: * Glucose checks ACHS * Carb-consistent diet * Sliding scale insulin PRN # Hypertension Chronic HTN, stable. BP 137/82 today Plan: * Continue lisinopril 10 mg daily * Monitor BP # Chronic alcohol use Long-standing alcohol use without acute withdrawal. Plan: * Credit Risk Associate on alcohol reduction/cessation * Monitor for withdrawal symptoms * Recommend outpatient follow-up for cessation resources Health Maintenance: Disposition: Continue inpatient IV antibiotics Diet: Carbohydrate-consistent DVT prophylaxis: Lovenox GI prophylaxis: Not indicated Code status: Full ----- Plan discussed with attending physician Dr. Racheal Walker MD PGY-1 Internal Medicine
--- NOTE | 2025-05-12 12:42 | PD.SURCONS ---
HPI Consult details Consult date: 05/12/25 Reason for consultation narrative: Left elbow cellulitis History of present illness: 55-year-old male history of hypertension diabetes was admitted with redness and pain of the left elbow. Patient states that he scratched his elbow by hitting a wall after which she developed a scab. He scratched the scab, then he had edema and erythema. He was seen in the emergency department he was given oral antibiotic without significant improvement. He denies history of insect or spider bites. X-rays showed some soft tissue edema, ultrasound revealed phlegmon versus early abscess. He was started on IV antibiotics and admitted for further management. Review of Systems Constitutional Constitutional: Denies chills and Denies fever(s) Cardiovascular Cardiovascular: Denies chest pain Respiratory Respiratory: Denies cough Gastrointestinal Gastrointestinal: Denies nausea and Denies vomiting Hematologic/Lymphatic Hematologic/Lymphatic: Denies easy bleeding and Denies easy bruising Past Medical History Surgical History OTHER SURGICAL HX: Bilateral knee surgeries Social History SMOKING STATUS: Never smoker SUBSTANCE USE: does not use ALCOHOL: Current Meds Home Medications and Allergies Home Medications ?Medication ?Instructions ?Recorded ?Confirmed ?Type lisinopril 20 mg tablet 10 mg PO QDAY 05/04/18 05/12/25 History cyclobenzaprine 10 mg tablet 10 mg PO QAM 05/12/25 05/12/25 History loratadine 10 mg tablet (Allergy 10 mg PO QDAY 05/12/25 05/12/25 History Relief (loratadine)) metformin 1,000 mg 24 hr 1,000 mg PO BID 05/12/25 05/12/25 History tablet,extended release (gastric reten.) (Glumetza) semaglutide 0.25 mg or 0.5 mg (2 0.5 mg subcut QWEEK 05/12/25 05/12/25 History mg/3 mL) subcutaneous pen injector (Ozempic) Allergies Allergy/AdvReac Type Severity Reaction Status Date / Time No Known Allergies Allergy Verified 05/11/25 20:02 Exam Vital Signs Temp Pulse Resp BP Pulse Ox O2 Del Method 97.3 F 82 18 137/82 H 97 Room Air 05/12/25 12:00 05/12/25 12:00 05/12/25 12:00 05/12/25 12:00 05/12/25 12:05/12/25 12:00 Constitutional Constitutional: no acute distress Routine Extremities Exam Comments: He has cellulitis and erythema with some induration of left elbow, no fluctuance or abscess at this time Assessment & Plan Additional Assessment Additional comments: Left elbow cellulitis without abscess at this time Plan Continue IV antibiotics. There is no indication for general surgical intervention at this time. If infection of elbow joint is a concern, consider orthopedic consult.
[2025-05-12 13:12] LABS: Slide Review Platelets confirmed
[2025-05-12] MEDS: INSULIN LISPRO (AdmeLOG) 1 UNIT/0.01 ML UNIT SC (20:57)
[2025-05-13] VITALS: BP 141/89; PULSE 87; RESP 16; TEMP 37.2; O2SAT 97
[2025-05-13 04:00] VITALS: BP 146/96; PULSE 88; RESP 16; TEMP 37.3; O2SAT 96
[2025-05-13] MEDS: ceFAZolin/D5W 1 GM IVPB 1 GM/50 ML BAG IV (05:42)
[2025-05-13] MEDS: KETOROLAC INJ 30 MG/ML VIAL IVP (05:49)
[2025-05-13 06:18] LABS: Basophils # (Auto) 0.0 Thou/mm3 (0.0-0.2); Basophils % (Auto) 0 % (0-2.5); Eosinophils # (Auto) 0.3 Thou/mm3 (0.0-0.5); Eosinophils % (Auto) 3 % (0-10); Hematocrit 34.9 % (41.0-53.0); Hemoglobin 12.6 g/dL (13.5-16.0); Immature Granulocytes Auto 0.03 Thou/mm3 (0.00-0.00); Lymphocytes # (Auto) 2.6 Thou/mm3 (1.0-4.8); Lymphocytes % (Auto) 27 % (10-50); Mean Corpuscular HGB Conc 36.1 g/dl (31.0-37.0); Mean Corpuscular Hemoglobin 35.1 pg (25.0-35.0); Mean Corpuscular Volume 97 fL (80-100); Monocytes # (Auto) 0.9 Thou/mm3 (0.0-0.8); Monocytes % (Auto) 9 % (0-12); Neutrophils # (Auto) 5.9 Thou/mm3 (1.8-7.7); Neutrophils % (Auto) 61 % (37-80); Nucleated Red Blood Cell # 0.00 Thou/mm3 (0.00-0.00); Nucleated Red Blood Cell % 0 /100 WBC (0); RDW Standard Deviation 41.4 fL (35.1-43.9); Red Blood Count 3.59 Miln/mm3 (4.50-5.90); White Blood Count 9.7 Thou/mm3 (3.8-10.6)
[2025-05-13 06:22] LABS: Platelet Count 69 Thou/mm3 (140-440)
[2025-05-13 06:23] LABS: INR 1.0 (0.9-1.3); Partial Thromboplastin Time 21.8 Seconds (22.0-36.0); Prothrombin Time 10.9 Seconds (9.0-12.2)
[2025-05-13 06:40] LABS: Alanine Aminotransferase 24 U/L (10-49); Albumin, Serum 4.2 gm/dL (3.5-5.0); Albumin/Globulin Ratio 1.3 (1.2-2.2); Alkaline Phosphatase 57 U/L (46-116); Anion Gap 15 (7-16); Aspartate Amino Transferase 20 U/L (0-34); BUN/Creatinine Ratio 8 Ratio (12-20); Bilirubin,Total 0.6 mg/dL (0.3-1.2); Blood Urea Nitrogen 8 mg/dL (9-23); Calcium 8.9 mg/dL (8.3-10.6); Calcium (Corrected) 8.9 mg/dL (8.5-10.1); Carbon Dioxide 19.3 mMol/L (20.0-31.0); Chloride 104 mMol/L (98-107); Creatinine (Component) 1.0 mg/dL (0.6-1.3); Estimated Creatinine Clearance 81.0 mL/min (>60); Globulin 3.3 gm/dL (2.3-3.5); Glucose 124 mg/dL (74-106); Osmolality,Calculated 274 (275-295); Potassium 3.9 mMol/L (3.4-5.1); Sodium 138 mMol/L (136-145); Total Protein 7.5 gm/dL (5.7-8.2); eGFR > 60 See Note
[2025-05-13 07:51] LABS: Slide Review Platelets confirmed
[2025-05-13 08:00] VITALS: BP 131/90; PULSE 92; RESP 18; TEMP 36.2; O2SAT 96
[2025-05-13 08:24] VITALS: BP 131/90; PULSE 92
[2025-05-13] MEDS: ENOXAPARIN SOD INJ 40 MG/0.4 ML SYRINGE SC (08:24)
[2025-05-13 09:53] LABS: Vancomycin,Trough 8.0 mcg/mL (5.0-10.0)
--- NOTE | 2025-05-13 09:59 | ESDS_ITS ---
<Statement entered by Derick Springer MD - 05/21/25 09:14> I reviewed above note and agree with findings and plans. I have also personally examined the patient with medicine team and went over assessment and plan with medical team including international specialist and resident physician. Planned Discharge Date 05/13/25 DS: Providers Provider Date of admission: 05/11/25 23:57 Primary care physician: Carlos Thornton MD Admitting Provider: Robert Jefferson MD Attending Provider on Admission: Derick Springer MD Consults: 05/12/25 10:36 Consult to General Surgery Routine Comment: left elbow abscess, failed PO ABX Consulting Provider: Nereyda Rivas Attending Provider on DC: Derick Springer MD Discharging Provider: Ishmael Walker MD DS: Diagnosis Problem List Completed Was Problem List Reviewed/Reconciled?: Yes Hospital Course Hospital Course Hospital course: 55-year-old male with a history of hypertension and type 2 diabetes mellitus, admitted for left elbow cellulitis after failing outpatient antibiotics. The patient presented with pain, erythema, and swelling of the left elbow following a scratch, which worsened despite initial treatment. Blood cultures were obtained, and the patient was started on IV antibiotics (Vancomycin and Zosyn), showing improvement in symptoms. Imaging, including ultrasound, showed early phlegmon without a mature abscess. The patient responded well to treatment, with no fever or systemic symptoms. Blood cultures returned negative after 24 hours. A general surgery consult was obtained, and they recommended no need for incision and drainage (ID) at this time, continuing with antibiotics and monitoring for further signs of abscess formation. The patient?s cellulitis improved significantly, and he was discharged with oral antibiotics. He was educated on the signs of recurrence and advised to follow up with his outpatient provider. Diagnosis during admission: # Cellulitis, left elbow, failed outpatient therapy # Early abscess, dorsum of left elbow # Thrombocytopenia # Type 2 diabetes mellitus # Hypertension # Chronic alcohol use Discharge instructions: * Follow-up with PCP within 1-2 weeks of discharge. * Continue taking CEFADROXIL twice daily for 8 more days. * Continue taking medications as prescribed below. * Return to Emergency Room if symptoms persist, worsen, or new symptoms develop. ----- Plan discussed with attending physician Dr. Racheal Walker MD PGY-1 Internal Medicine Time Spent with Patient Time attestation: Total time spent providing and/or coordinating discharge services: Time spent: Greater than 30 minutes Exam Vital Signs Temp Pulse Resp BP Pulse Ox O2 Del Method 97.2 F 92 18 131/90 H 96 Room Air 05/13/25 08:00 05/13/25 08:24 05/13/25 08:00 05/13/25 08:24 05/13/25 08:00 05/13/25 08:00 Narrative Exam Physical Exam: General: Alert, no acute distress. Skin: Warm, dry, intact. Head: Normocephalic, atraumatic. Eye: Normal conjunctiva, PERRL. Throat: Oral mucosa moist. No obvious lesions in oropharynx. Cardiovascular: Regular rate and rhythm, no murmur, +S1/S2. Respiratory: Lungs are clear to auscultation, respirations unlabored, no crackles, no wheezing. Gastrointestinal: Soft, nontender, non-distended. No guarding or rebound tenderness. Extremities: Left elbow 1+ edema and diffuse erythema with estimated 5cm linear scab, no cyanosis, no clubbing. 2+ radial pulse bilaterally, 2+ pedal pulse bilaterally. Neuro: No focal deficits observed. Conversant, moving all extremities. No overt cerebellar signs/incoordination. Psychiatric: Cooperative, appropriate affect. Discharge Plan Plan Patient Disposition: HOME (Self Care) Patient condition on transfer: Stable Care Plan Goals: * Follow-up with PCP within 1-2 weeks of discharge. * Continue taking CEFADROXIL twice daily for 8 more days. * Continue taking medications as prescribed below. * Return to Emergency Room if symptoms persist, worsen, or new symptoms develop. Prescriptions/Referrals Prescriptions/Med Rec: New cefadroxil 500 mg capsule 500 mg PO BID 8 Days Qty: 16 0RF Continued lisinopril 20 mg Tablet 10 mg PO QDAY metformin [Glumetza] 1,000 mg tablet,ER russell.retention 24 hr 1,000 mg PO BID loratadine [Allergy Relief (loratadine)] 10 mg tablet 10 mg PO QDAY cyclobenzaprine 10 mg tablet 10 mg PO QAM Ozempic 0.25 mg or 0.5 mg (2 mg/3 mL) pen injector 0.5 mg subcut QWEEK Referrals: Carlos Thornton MD [Primary Care Provider, Family Practice] Patient/Caregiver Discharge Instructions Education Materials: Discharge Instructions for Cellulitis Print Language: Luxem[place] Stand Alone Forms: Breanna Award Info., Patient Portal Info Letter Discharge Order Discharge Orders: Discharge (Routine); Ordered 05/13/25 Ordered By: Obdulio Zhu Quality Discharge Quality Measures VTE prophylaxis
[2025-05-13] MEDS: VANCOMYCIN/WATER 1250 MG IVPB 250 ML 120 MG IV (10:52)
[2025-05-13 11:57] VITALS: BP 127/88; PULSE 80; RESP 18; TEMP 36.2; O2SAT 96
== END 2025-05-13 13:00 | disposition home or self-care (01) | DRG 383 ==
LOC: SERX 22:29 → SERHOLD 05-12 00:25 → S3SX 05-12 02:13 → SERHOLD 05-12 06:30
PROVIDERS: Physician Assistant; Admitting Provider Student in an Organized Health Care Education/Training Program; Emergency Provider Emergency Medicine; PCP Family Medicine; Visit Provider Internal Medicine
DX: L03.114 Cellulitis of left upper limb (principal); I10 Essential (primary) hypertension; E11.9 Type 2 diabetes mellitus without complications; D69.59 Other secondary thrombocytopenia; F10.90 Alcohol use, unspecified, uncomplicated; W22.01XA Walked into wall, initial encounter; Z79.84 Long term (current) use of oral hypoglycemic drugs; Z79.899 Other long term (current) drug therapy; Z79.85 Long-term (current) use of injectable non-insulin antidiabetic drugs
CPT/HCPCS: 36415; 73070; 76882; 80053; 80202; 83036; 83605; 83735; 84100; 84145; 85025; 85610; 85652; 85730; 86140; 87040; 96361; 96365; 96366; 99284; J0689; J1650; J1815; J1885; J2543; J3373; J3375; J7030; A9270